=== PATIENT | male | born 1985 ===

== ENCOUNTER 2024-06-18 12:34 | Emergency (ER) | payer SELFPAY ==
[2024-06-18] MEDS: Hydrocortisone Acetate 25 MG Supp RECTAL PRN (13:36)
== END 2024-06-18 14:00 | disposition home or self-care (01) ==
LOC: CC.ED 12:34
DX: K64.4 Residual hemorrhoidal skin tags (principal); Z79.899 Other long term (current) drug therapy
CPT/HCPCS: 99283; A9270-GY